=== PATIENT | female | born 1970 | race Two or more races ===

== ENCOUNTER 2021-04-05 01:12 | Inpatient (IN) | payer OTHER ==
[~2021-04-05] VITALS: Ht 165.1 cm; Wt 71.7 kg
[2021-04-05] MEDS ORDERED: CEFEPIME 1 GM in IV D5W 50 ML IV ONE (01:30)
[2021-04-05] MEDS ORDERED: methylPREDNISolone SOD SUCC 125 MG/2ML VIAL IV ONE (01:30)
--- NOTE | 2021-04-05 01:45 | NUR ---
pt bibra c/o sob.pt stated it started 2 days ago and it got worst.pt on 5 l NC sating 95%.pt is a/o x4.
[2021-04-05] MEDS ORDERED: methylPREDNISolone SOD SUCC 125 MG/2ML VIAL ONE (02:06)
[2021-04-05] MEDS ORDERED: CEFEPIME 1 GM VIAL ONE (02:06)
[2021-04-05 02:21] LABS: BASOPHILS % (AUTO) 0.2 % (0.0-2.0); HEMATOCRIT 40 % (33-45); LYMPHOCYTES % (AUTO) 12.3 % (20.0-44.0); MEAN CORPUSCULAR HGB CONC 33 g/dl (31.0-36.0); MEAN CORPUSCULAR VOLUME 81 fL (82-100); MONOCYTES # (AUTO) 0.2 K/uL (0.1-1.30); MONOCYTES % (AUTO) 2.3 % (2.0-12.0); NEUTROPHILS # (AUTO) 7.2 K/uL (1.8-8.9); NEUTROPHILS % (AUTO) 85.2 % (43.0-81.0); PLATELET COUNT (AUTO) 249 K/uL (150-450); RED BLOOD CELL COUNT(AUTO) 4.89 MIL/uL (4.0-5.2); WHITE BLOOD COUNT (AUTO) 8.4 K/uL (4.3-11.0)
[2021-04-05 02:39] LABS: CREATINE KINASE, TOTAL 281 U/L (26-192)
[2021-04-05 02:43] LABS: C-REACTIVE PROTEIN 12.5 mg/dL (0.0-0.9)
[2021-04-05 03:21] LABS: CALCIUM, SERUM 8.5 mg/dL (8.5-10.1); CARBON DIOXIDE 25 mmol/L (21-32); CHLORIDE 104 mmol/L (98-107); CREATININE 1.2 mg/dL (0.6-1.3); D-DIMER 1.62 mg/L(FEU (0.17-0.50); GLUCOSE 113 mg/dL (74-106); POTASSIUM 3.6 mmol/L (3.5-5.1); SODIUM SERUM 140 mmol/L (136-145); UREA NITROGEN, BLOOD 20 mg/dL (7-18)
[2021-04-05 03:38] LABS: ALANINE AMINOTRANSFERASE 98 U/L (12-78); ALBUMIN 3.3 g/dL (3.4-5.0); ALKALINE PHOSPHATASE 102 U/L (46-116); ASPARTATE AMINOTRANSFERASE 230 U/L (15-37); BILIRUBIN,TOTAL 0.5 mg/dL (0.2-1.0); TOTAL PROTEIN, SERUM 8.9 g/dL (6.4-8.2)
--- NOTE | 2021-04-05 04:21 | NUR ---
CALLED [facility] AWAITING FOR DR HARRINGTON'S CALL BACK
--- NOTE | 2021-04-05 04:27 | NUR ---
DR HERNANDEZ ON THE PHONE WITH DR BRAN FROM [facility]
--- NOTE | 2021-04-05 07:32 | NUR ---
PT ASSESSED ON BED ASLEEP EASILY AROUSABLE, NOT IN RESPIRATORY DISTRESS, ON NC AT 4LPM SATS AT 96%, V/S STABLE, KEPT RESTED AND COMFORTABLE. WILL CONTINUE TO MONITOR.
--- NOTE | 2021-04-05 07:48 | NUR ---
CALLED [facility] AND WAS NOTIFIED THAT THEY ARE STILL AWAITING A BED FOR THE PT. WILL RECIEVE A CALL ONCE A BED IS PROVIDED.
--- NOTE | 2021-04-05 09:09 | NUR ---
CALLED [facility] REGARDING PT TRANSFER. DUE TO NO OPEN BED'S [place] GAVE AUTHORIZATION FOR THE PT TO STAY HERE. WILL RECIEVE A CALL BACK WITH AUTHORIZATION NUMBER
--- NOTE | 2021-04-05 10:37 | NUR ---
AUTHORIZATION NUMBER [id number]
--- NOTE | 2021-04-05 11:58 | NUR ---
ROOM 118-2
--- NOTE | 2021-04-05 11:59 | NUR ---
CALLED [facility] FOR REPORT RN NOT AVAILBLE. WILL CALL BACK LATER.
--- NOTE | 2021-04-05 12:42 | NUR ---
REPORT GIVEN TO CANDIDA FRYE FOR DUSTY.
--- NOTE | 2021-04-05 13:15 | NUR ---
RN REPORT RECEIVED PATIENT FROM ER DEPT. PATIENT ADMITTED FOR POSITIVE OF COVID-19. BREATHING EVEN AND UNLABORED ON 4LPM O2 VIA NC, TOLERATED WELL. NO SOB OR ANY ACUTE RESPIRATORY DISTRESS NOTED. PATIENT IS AWAKE, ALERT/ORIENTED X 4, ABLE TO MAKE NEEDS KNOWN. PATIENT BELONGINGS ACCOUNTED FOR AND ADDED ON INVENTORY LIST IN PATIENT'S CHART. VITAL SIGNS: TEMP: 98.7, HR-102, RR-18, O2-93%, BP-115/63. PATIENT DENIES ANY PAIN AT THE TIME. ALL NEEDS ATTENDED. ALL APPLICABLE ISOLATION PRECAUTIONS IN PLACED. ALL SAFETY MEASURES IN PLACED: HOB ELEVATED, BED LOCKED, IN LOWEST POSITION WITH SIDE RAILS UP. CALL LIGHT WITHIN REACH OF PATIENT. WILL CONTINUE TO MONITOR ACCORDINGLY.
[2021-04-05] MEDS ORDERED: Z GUARD REMEDY 4 OZ OINT TP PRN (14:00)
[2021-04-05] MEDS ORDERED: ENOXAPARIN SODIUM 40 MG/0.4 ML DISP.SYRIN SQ SCH (14:00)
[2021-04-05] MEDS ORDERED: IV NS 0.9% 1,000 ML IV ONE (14:00)
[2021-04-05] MEDS ORDERED: MAGNESIUM HYDROXIDE 30 ML UDC PO PRN (14:00)
[2021-04-05] MEDS ORDERED: ONDANSETRON HCL/PF 4 MG/2 ML VIAL IVP PRN (14:00)
[2021-04-05] MEDS ORDERED: MAG HYDROX/AL HYDROX/SIMETH 30 ML UDC PO PRN (14:00)
[2021-04-05 16:06] VITALS: BP 107/59
--- NOTE | 2021-04-05 18:47 | NUR ---
RN CLOSING NOTES PATIENT IN BED AWAKE ALERT/ORIENTED X 4. PATIENT REMAINS IN STABLE CONDITION THROUGHOUT SHIFT. NO SIGNIFICANT CHANGES THROUGHOUT SHIFT. PATIENT ON 4 LPM O2 VIA NC, TOLERATING WELL WITH SAT OF 94% BREATHING EVEN AND UNLABORED. NO DISTRESS OR SHORTNESS OF BREATH NOTED, ON TELE MONITOR SHOWING ST HR AT 100'S. IV ACCESS ON LEFT AC #18G, FLUSHED WELL, INTACT AND PATENT AND RIGHT AC INFUSING NS AT 75 ML/HR, TOLERATING WELL. NO S/SX OF INFILTRATION NOTED. ALL DUE MEDS GIVEN ORDERED, TOLERATED WELL. KEPT PATIENT DRY, CLEAN AND COMFORTABLE. ALL APPLICABLE ISOLATION PRECAUTIONS MAINTAINED. SAFETY MEASURES IN PLACE, BED ALARM ON, BED IN LOW AND LOCKED POSITION, CALL LIGHT WITHIN REACH OF PATIENT. SIDE RAILS UP X2. ALL NEEDS ATTENDED AND MET. WILL ENDORSE TO ONCOMING SHIFT FOR CONTINUITY OF CARE.
--- NOTE | 2021-04-05 19:30 | NUR ---
BUSINESS PLANNING DIRECTOR OPENING NOTES: RECEIVED PATIENT FROM DAY SHIFT, PATIENT IN BED, A/O X4, STATES NO PAIN, L AC #18 PATENT AND INTACT, R. AC #18 NOT PATENT BUT IS INTACT, TELE MONITOR SHOWS SINUS TACHY, ON 4L NASAL CANNULA, SATURATING 94%, NO SIGNS OF SOB, NO DISTRESS NOTED, BED AT LOWEST POSITION, BRAKES LOCKED AND IN PLACE, CALL LIGHT WITHIN REACH, SIDE RAILS UP X2, WILL CONTINUE TO MONITOR AND ADMINISTER NURSING INTERVENTIONS NEEDED.
[2021-04-05 20:00] VITALS: BP 130/63
--- NOTE | 2021-04-05 22:30 | NUR ---
FITTER PLACER NOTES: INCREASED NC TO 5L PER PATIENT COMPLAINT OF SHORTNESS OF BREATH, PATIENT STATED SHE FEELS BETTER AFTER A FEW MINUTES
[2021-04-06] VITALS: BP 124/72
[2021-04-06 04:00] VITALS: BP 121/69
--- NOTE | 2021-04-06 05:55 | NUR ---
VALVE MECHANIC NOTES: PATIENT CLAIMS 11/10 BACK PAIN AND REQUESTS PAIN MEDICATION, WILL ADMINISTER TYLENOL 650MG
[2021-04-06] MEDS: ACETAMINOPHEN 325 MG TABLET PO PRN (05:57)
--- NOTE | 2021-04-06 06:45 | NUR ---
KEYPUNCH OPERATOR CLOSING NOTES: PATIENT IN BED, RESTING, A/O X4, TELE MONITOR SHOWS ST, L. AC #18 INTACT BUT NOT PATENT, R. AC #18 PATENT AND INTACT, NS STOPPED AT 0320, 650 MG TYLENOL GIVEN FOR PAIN IN BACK, ON NC 5L, SATURATING 94%, , NO SIGNS OF SOB, NO DISTRESS NOTED, BED AT LOWEST POSITION, BRAKES LOCKED AND IN POSITION, SIDE RAILS UP X2, CALL LIGHT WITHIN REACH, WILL CONTINUE TO MONITOR AND IMPLEMENT NURSING INTERVENTIONS NEEDED. WILL ENDORSE TO DAY SHIFT NURSE.
--- NOTE | 2021-04-06 07:30 | NUR ---
RN AM TELE OPENING NOTES: RECEIVED PATIENT FROM PM SHIFT, PATIENT IN BED, A/O X4, STATES NO PAIN, L AC #18 PATENT AND INTACT, R. AC #18 NOT PATENT BUT IS INTACT, TELE MONITOR SHOWS SINUS TACHY, ON 4L NASAL CANNULA, SATURATING 94%, NO SIGNS OF SOB, NO DISTRESS NOTED, BED AT LOWEST POSITION, BRAKES LOCKED AND IN PLACE, CALL LIGHT WITHIN REACH, SIDE RAILS UP X2, WILL CONTINUE TO MONITOR AND ADMINISTER NURSING INTERVENTIONS NEEDED
[2021-04-06 08:00] VITALS: BP 130/70
[2021-04-06] MEDS: DEXAMETHASONE SOD PHOSPHATE 10 MG/ML VIAL IV SCH (08:13)
[2021-04-06 08:40] LABS: CALCIUM, SERUM 8.8 mg/dL (8.5-10.1); CREATININE 1.2 mg/dL (0.6-1.3); MAGNESIUM 2.8 mg/dL (1.8-2.4); PHOSPHORUS 3.1 mg/dL (2.5-4.9); POTASSIUM 3.4 mmol/L (3.5-5.1)
[2021-04-06 08:42] LABS: BASOPHILS % (AUTO) 0.1 % (0.0-2.0); HEMATOCRIT 34 % (33-45); LYMPHOCYTES % (AUTO) 9.5 % (20.0-44.0); MEAN CORPUSCULAR HGB CONC 33 g/dl (31.0-36.0); MEAN CORPUSCULAR VOLUME 81 fL (82-100); MONOCYTES # (AUTO) 0.5 K/uL (0.1-1.30); MONOCYTES % (AUTO) 4.8 % (2.0-12.0); NEUTROPHILS # (AUTO) 8.8 K/uL (1.8-8.9); NEUTROPHILS % (AUTO) 85.6 % (43.0-81.0); PLATELET COUNT (AUTO) 311 K/uL (150-450); RED BLOOD CELL COUNT(AUTO) 4.18 MIL/uL (4.0-5.2); WHITE BLOOD COUNT (AUTO) 10.3 K/uL (4.3-11.0)
[2021-04-06] MEDS: ENOXAPARIN SODIUM 40 MG/0.4 ML DISP.SYRIN SQ SCH ×2 (10:00→21:01)
[2021-04-06] MEDS ORDERED: ENOXAPARIN SODIUM 40 MG/0.4 ML DISP.SYRIN SQ SCH ×2 (10:30→11:20)
[2021-04-06] MEDS ORDERED: POTASSIUM CHLORIDE 20 MEQ TAB.PRT.SR PO SCH (11:00)
--- NOTE | 2021-04-06 11:27 | NUR ---
FREEZER TUNNEL OPERATOR NOTES PHARMACY AMENDED LOVENOX ORDER FROM 14:00 TO 11:00AM. PATIENT GIVEN LOVENOX AT 10:30.
[2021-04-06 12:00] VITALS: BP 119/70
[2021-04-06 16:00] VITALS: BP 131/77
[2021-04-06] MEDS: HYDROCODONE/APAP 5/325MG TABLET PO PRN (17:41)
--- NOTE | 2021-04-06 18:42 | NUR ---
DREDGE PIPE INSTALLER CLOSING NOTES: PATIENT IN BED, RESTING, A/O X4, TELE MONITOR SHOWS SR AT 91 BPM, L. AC #18 INTACT AND PATENT, R. AC #18 PATENT AND INTACT, PATIENT ON SIMPLE MASK 8L, SATURATING 93%, , NO SIGNS OF SOB, NO DISTRESS NOTED, BED AT LOWEST POSITION, BRAKES LOCKED AND IN POSITION, SIDE RAILS UP X2, CALL LIGHT WITHIN REACH, WILL CONTINUE TO MONITOR AND IMPLEMENT NURSING INTERVENTIONS NEEDED. WILL ENDORSE TO MOTORBOAT MECHANIC INBOARD/OUTBOARD NURSE.
--- NOTE | 2021-04-06 19:45 | NUR ---
RN NOTE PT RECEIVED IN BED. PT IS ON 5L OF O2 VIA NC SHOWING NO S/S OF RESP DISTRESS. PT IS ALERT AND ORIENTED X3-4. ON DRAW IN HAND SHOWING NSR. SKIN INTACT. ON REGULAR DIET. IV ACCESS NOTED ON LEFT AC#18 AND RIGHT AC#18. LINES FLUSHED AND PATENT, NO SIGNS OF INFILTRATION. ALL SAFETY MEASURES IMPLEMENTED. CALL LIGHT WITHIN REACH. BED ALARM ON. BED LOCKED AND IN LOWEST POSITION. WILL CONTINUE TO MONITOR AND ASSESS FOR ANY CHANGES DURING SHIFT.
[2021-04-06 20:00] VITALS: BP 128/60
[2021-04-07] VITALS: BP 121/69
[2021-04-07] MEDS: HYDROCODONE/APAP 5/325MG TABLET PO PRN (02:07)
[2021-04-07 04:00] VITALS: BP 135/85
--- NOTE | 2021-04-07 06:43 | NUR ---
RN NOTE NO CHANGES IN PT CONDITION DURING SHIFT. PT IS ON 5L OF O2 VIA NC SHOWING NO S/S OF RESP DISTRESS. PT IS ALERT AND ORIENTED X3-4. ON BUSINESS TECHNOLOGY PROFESSOR SHOWING NSR. IV ACCESS NOTED ON LEFT AC#18 AND RIGHT AC#18. LINES FLUSHED AND PATENT, NO SIGNS OF INFILTRATION. ALL DUE MEDS GIVEN ORDERED. ALL SAFETY MEASURES IMPLEMENTED. CALL LIGHT WITHIN REACH. BED ALARM ON. BED LOCKED AND IN LOWEST POSITION. WILL ENDORSE TO MORNING SHIFT RN FOR DUSTY.
--- NOTE | 2021-04-07 07:30 | NUR ---
RN OPENING NOTES: RECEIVED PATIENT AWAKE, ALERT/ORIENTED X4, ABLE TO MAKE NEEDS KNOWN. ON O2 5LPM VIA NC, TOLERATING WELL. BREATHING EVEN AND UNLABORED. NO SOB OR ANY ACUTE DISTRESS NOTED. IV ACCESS ON LEFT AC #18 PATENT AND INTACT, RIGHT AC #18. ALL APPLICABLE ISOLATION PRECAUTIONS IN PLACED. ALL SAFETY MEASURES IN PLACE BED AT LOWEST POSITION AND LOCKED SIDE RAILS UP X2, CALL LIGHT WITHIN REACH OF PATIENT. WILL CONTINUE TO MONITOR PATIENT ACCORDINGLY.
[2021-04-07 08:00] VITALS: BP 157/74
[2021-04-07] MEDS: DEXAMETHASONE SOD PHOSPHATE 10 MG/ML VIAL IV SCH (09:33)
[2021-04-07] MEDS: LEVOTHYROXINE SODIUM 50 MCG TABLET PO SCH (09:33)
[2021-04-07] MEDS: ENOXAPARIN SODIUM 40 MG/0.4 ML DISP.SYRIN SQ SCH ×2 (09:33→21:39)
[2021-04-07 09:37] LABS: BASOPHILS % (AUTO) 0.1 % (0.0-2.0); EOSINOPHILS % (AUTO) 0.1 % (0.0-6.0); HEMATOCRIT 36 % (33-45); HEMOGLOBIN 11.3 g/dL (11.5-14.8); LYMPHOCYTES # (AUTO) 0.9 K/uL (0.8-4.8); LYMPHOCYTES % (AUTO) 6.2 % (20.0-44.0); MEAN CORPUSCULAR HGB CONC 32 g/dl (31.0-36.0); MEAN CORPUSCULAR VOLUME 81 fL (82-100); MONOCYTES # (AUTO) 0.5 K/uL (0.1-1.30); MONOCYTES % (AUTO) 3.6 % (2.0-12.0); NEUTROPHILS # (AUTO) 13.2 K/uL (1.8-8.9); PLATELET COUNT (AUTO) 378 K/uL (150-450); RED BLOOD CELL COUNT(AUTO) 4.37 MIL/uL (4.0-5.2); WHITE BLOOD COUNT (AUTO) 14.6 K/uL (4.3-11.0)
[2021-04-07 09:49] LABS: ALBUMIN 2.9 g/dL (3.4-5.0); BILIRUBIN,DIRECT 0.2 mg/dL (0.0-0.2); BILIRUBIN,TOTAL 0.4 mg/dL (0.2-1.0); CALCIUM, SERUM 8.9 mg/dL (8.5-10.1); CREATININE 0.9 mg/dL (0.6-1.3); PHOSPHORUS 2.4 mg/dL (2.5-4.9); POTASSIUM 3.7 mmol/L (3.5-5.1)
[2021-04-07] MEDS ORDERED: NEUTRA PHOS 1 POWD.PACKET PO ONE (11:30)
[2021-04-07 12:00] VITALS: BP 128/81
[2021-04-07 16:00] VITALS: BP 136/88
[2021-04-07] MEDS: ACETAMINOPHEN 325 MG TABLET PO PRN (17:28)
--- NOTE | 2021-04-07 18:38 | NUR ---
PER [facility] COVID POSITIVE, NOTIFIED ,SIMON DOUGHERTY,PRIMARY RN NOTIFIED.
--- NOTE | 2021-04-07 19:03 | NUR ---
RN CLOSING NOTES PT IN BED AWAKE, RESTING COMFORTABLY IN BED BREATHING EVEN AND UNLABORED NO SOB OR ANY DISTRESS NOTED. ON O2 5L/MIN VIA NC. PATIENT IN STABLE CONDITION THROUGHOUT SHIFT. DENIES ANY PAIN AT THE TIME. IV ACCESS ON RT AC #18G INTACT AND PATENT. NO S/S OF INFILTRATIONS. ALL DUE MEDS GIVEN ORDERED. KEPT PATIENT CLEAN, DRY AND COMFORTABLE. ALL NEEDS MET AND ATTENDED. ALL APPLICABLE ISOLATION PRECAUTIONS IN PLACE. ALL SAFETY MEASURE IN PLACE. BED LOCKED AND IN LOW POSITION WITH SIDERAILS UP. CALL LIGHT WITHIN REACH OF PATIENT WILL ENDORSE TO ONCOMING NURSE FOR CONTINUITY OF CARE.
--- NOTE | 2021-04-07 19:55 | NUR ---
RN OPENING NOTES PT IN BED AWAKE AND A/O X 4 , RESTING COMFORTABLY IN BED BREATHING EVEN AND UNLABORED NO SOB OR ANY DISTRESS NOTED. ON O2 5L/MIN VIA NC SATURATING 93%. DENIES ANY PAIN AT THE TIME. IV ACCESS ON RT AC #18G INTACT AND PATENT. NO S/S OF INFILTRATIONS. ALL APPLICABLE ISOLATION PRECAUTIONS IN PLACE. ALL SAFETY MEASURE IN PLACE. BED LOCKED AND IN LOW POSITION WITH SIDERAILS UP. CALL LIGHT WITHIN REACH OF PATIENT.
[2021-04-07 20:00] VITALS: BP 138/85
--- NOTE | 2021-04-07 21:31 | NUR ---
RN NOTE SON YAIR CALLED FOR UPDATE. HE IS AWARE THAT HER 02 SAT IS IN THE LOW 90S. COMMUNICATED WITH HIM THAT HER STATUS HAS BEEN STABLE DURING MY SHIFT WITH HER FOR THE PAST COUPLE OF HOURS. WILL CALL BACK TOMORROW MORNING FOR MORE UPDATES.
[2021-04-07] MEDS: ZOLPIDEM TARTRATE 5 MG TABLET PO PRN (23:48)
[2021-04-08] VITALS: BP_SYST 121; BP_SYST 143; BP_DIAS 75; BP_DIAS 76
[2021-04-08 04:00] VITALS: BP 122/72
--- NOTE | 2021-04-08 06:44 | NUR ---
RN CLOSING NOTES PT IN BED AWAKE, RESTING COMFORTABLY IN BED BREATHING EVEN AND UNLABORED NO SOB OR ANY DISTRESS NOTED. ON O2 5L/MIN VIA NC. KEPT PATIENT CLEAN, DRY AND COMFORTABLE. ALL NEEDS MET AND ATTENDED. ALL APPLICABLE ISOLATION PRECAUTIONS IN PLACE. ALL SAFETY MEASURE IN PLACE. BED LOCKED AND IN LOW POSITION WITH SIDERAILS UP. CALL LIGHT WITHIN REACH OF PATIENT WILL ENDORSE TO ONCOMING NURSE FOR PATIENTS REQUESTS REGARDING DISCHARGE TO HOME AGAINST MEDICAL ADVICE BECAUSE SHE SAYS SHE "FEELS ANXIOUS ABOUT BEING HERE AND WANTS TO GO HOME OR MAYBE I'LL GO TO [place] OR SOMETHING."
--- NOTE | 2021-04-08 07:35 | NUR ---
RN MORNING NOTE PT RECEIVED IN BED WITH HOB SEMI FOWLERS. PT IS ON 5L O2 VIA NC SAT 100% TOLERATING WELL WITH NO SIGNS OF DISTRESS OR LABORED BREATHING. PT IS A/OX4 AND ON REGULAR DIET. IV ACCESS R AC 18G. BED IS LOCKED IN LOWEST POSITION X2 GUARD RAILS UP, CALL OSULLIVAN IS WITHIN REACH, AND ALL HOSPITAL SAFETY MEASURES ARE IN PLACE. WILL CONTINUE TO MONITOR THIS SHIFT.
[2021-04-08 08:00] VITALS: BP 121/77
[2021-04-08] MEDS: LEVOTHYROXINE SODIUM 50 MCG TABLET PO SCH (08:27)
[2021-04-08] MEDS: DEXAMETHASONE SOD PHOSPHATE 10 MG/ML VIAL IV SCH (08:28)
[2021-04-08] MEDS: ENOXAPARIN SODIUM 40 MG/0.4 ML DISP.SYRIN SQ SCH ×2 (09:40→21:29)
[2021-04-08 12:00] VITALS: BP 133/76
[2021-04-08] MEDS ORDERED: LORAZEPAM INJ 2 MG/ML VIAL IV PRN (14:30)
[2021-04-08 16:00] VITALS: BP 127/70
[2021-04-08 16:13] LABS: HEMATOCRIT 36 % (33-45); HEMOGLOBIN 11.7 g/dL (11.5-14.8); LYMPHOCYTES # (AUTO) 0.5 K/uL (0.8-4.8); LYMPHOCYTES % (AUTO) 3.3 % (20.0-44.0); MEAN CORPUSCULAR HGB CONC 33 g/dl (31.0-36.0); MEAN CORPUSCULAR VOLUME 80 fL (82-100); MONOCYTES # (AUTO) 0.3 K/uL (0.1-1.30); MONOCYTES % (AUTO) 1.7 % (2.0-12.0); NEUTROPHILS # (AUTO) 14.9 K/uL (1.8-8.9); PLATELET COUNT (AUTO) 351 K/uL (150-450); RED BLOOD CELL COUNT(AUTO) 4.45 MIL/uL (4.0-5.2); WHITE BLOOD COUNT (AUTO) 15.7 K/uL (4.3-11.0)
[2021-04-08 16:37] LABS: MAGNESIUM 2.5 mg/dL (1.8-2.4); PHOSPHORUS 2.5 mg/dL (2.5-4.9); POTASSIUM 3.5 mmol/L (3.5-5.1)
[2021-04-08] MEDS: ENSURE ENLIVE 237 ML LIQUID (VANILLA) PO SCH (17:54)
[2021-04-08 18:24] LABS: BAND % (MANUAL) 4 % (0.0-5.0); LYMPHOCYTES % (MANUAL) 8 % (16-48); MONOCYTES % (MANUAL) 2 % (0-11.0); MYELOCYTES % 1 % (0-0); NEUTROPHILS % (MANUAL) 85 (42-76)
--- NOTE | 2021-04-08 19:02 | NUR ---
RN CLOSING NOTE PT IS RESTING IN BED WITH HOB SEMI FOWLERS. PT IS ON 7L O2 VIA SIMPLE MASK SAT 100% TOLERATING WELL WITH NO SIGNS OF DISTRESS OR LABORED BREATHING. PT IS A/OX4 AND ON REGULAR DIET. IV ACCESS R AC 18G. BED IS LOCKED IN LOWEST POSITION X2 GUARD RAILS UP, CALL OSULLIVAN IS WITHIN REACH, AND ALL HOSPITAL SAFETY MEASURES ARE IN PLACE. WILL ENDORSE TO THRESHING OPERATOR NURSE FOR DUSTY.
--- NOTE | 2021-04-08 19:38 | NUR ---
RN OPENING NOTES PATIENT IS A/O X 4 . IN SEMI FOWLERS POSITION. PT IS ON 7L O2 VIA SIMPLE MASK SAT 90S TOLERATING WELL WITH NO SIGNS OF DISTRESS OR LABORED BREATHING. PT IS A/OX4 AND ON REGULAR DIET. IV ACCESS R AC 18G. BED IS LOCKED IN LOWEST POSITION X2 GUARD RAILS UP, CALL OSULLIVAN IS WITHIN REACH, AND COVID 19 ISOLATION PRECAUTIONS TAKEN, AND ENVIRONMENTAL PRECAUTIONS TAKEN. WILL CONTINUE TO MONITOR THROUGHOUT THE SHIFT.
[2021-04-08 20:00] VITALS: BP 137/89
--- NOTE | 2021-04-08 20:30 | NUR ---
GRANITE WORKER NOTE AT @2029PATIENTS SON (YAIR) , CALLED TO GET AN UPDATE, HE STATED THAT HIS MOM SAID THAT NO ONE EVER CAME IN TO DO AM LABS SO TREATMENT CAN BE INITIATED. HOWEVER PATIENT HAD REFUSED AM LABS YESTERDAY. SPOKE WITH PATIENT AT 2039 AND EXPLAINED THE IMPORTANCE OF CONSENTING TO LAB WORK HER TREATMENT PLAN IS DEPENDENT ON THE RESULTS OF LIVER FUNCTION TESTS. PATIENT WAS ON THE PHONE WITH HER SON WHILE I WAS NEXT TO HER AND SHE SAID THAT NO ONE EVER CAME IN THE ROOM TO DO BLOOD WORK IN THE MORNING. I GENTLY REMINDED HER THAT SHE HAD REFUSED THE LABS IN THE AM, AND SHE RECALLED THAT INFORMATION AND SAID THAT SHE DID NOT LIKE TO BE POKED BECAUSE IT HURT. AM LABS ARE SCHEDULED FOR THE AM, PATIENT SAID THAT SHE WILL ALLOW THEM TO GET BLOOD IN THE MORNING. WILL CONTINUE TO MONITOR PATIENT AND ENCOURAGE HER NEEDED FOR LABS.
--- NOTE | 2021-04-08 20:53 | NUR ---
LAND MOBILE RADIO TECHNICIAN NOTE SPOKE WITH ARIC TILLMAN, HE IS AWARE THAT THAT THE NEEDS THE BLOOD WORK IN ORDER TO START THE TREATMENT. HE IS AWARE AND WILL SPEAK WITH HIS SON TO TRY TO CONVINCE HER TO AGREE TO AM LABS SO TREATMENT CAN BE INITIATED. PHONE NUMBER FOR IS [phone]
[2021-04-08] MEDS: ZOLPIDEM TARTRATE 5 MG TABLET PO PRN (21:26)
[2021-04-09 00:33] VITALS: BP 137/89
[2021-04-09 04:00] VITALS: BP 139/78
[2021-04-09 07:16] LABS: BASOPHILS % (AUTO) 0.1 % (0.0-2.0); EOSINOPHILS % (AUTO) 0.4 % (0.0-6.0); HEMATOCRIT 38 % (33-45); LYMPHOCYTES # (AUTO) 0.9 K/uL (0.8-4.8); LYMPHOCYTES % (AUTO) 6.9 % (20.0-44.0); MEAN CORPUSCULAR HGB CONC 32 g/dl (31.0-36.0); MEAN CORPUSCULAR VOLUME 81 fL (82-100); MONOCYTES # (AUTO) 0.4 K/uL (0.1-1.30); MONOCYTES % (AUTO) 2.9 % (2.0-12.0); NEUTROPHILS # (AUTO) 11.1 K/uL (1.8-8.9); NEUTROPHILS % (AUTO) 89.7 % (43.0-81.0); PLATELET COUNT (AUTO) 325 K/uL (150-450); WHITE BLOOD COUNT (AUTO) 12.4 K/uL (4.3-11.0)
--- NOTE | 2021-04-09 07:53 | NUR ---
RN CLOSING NOTE PATIENT REMAINED STABLE THROUGHOUT NIGHT, KEPT PATIENT DRY AND CLEAN THROUGHOUT THE SHIFT. WILL ENDORSE PLAN OF CARE TO ONCOMING NURSE.
[2021-04-09 07:58] LABS: ALBUMIN 2.8 g/dL (3.4-5.0); BILIRUBIN,DIRECT 0.2 mg/dL (0.0-0.2); BILIRUBIN,TOTAL 0.6 mg/dL (0.2-1.0); CALCIUM, SERUM 8.4 mg/dL (8.5-10.1); CREATININE 0.8 mg/dL (0.6-1.3); MAGNESIUM 2.8 mg/dL (1.8-2.4); PHOSPHORUS 2.4 mg/dL (2.5-4.9); POTASSIUM 3.8 mmol/L (3.5-5.1); TOTAL PROTEIN, SERUM 8.1 g/dL (6.4-8.2)
[2021-04-09 08:00] VITALS: BP 129/77
[2021-04-09] MEDS: ENSURE ENLIVE 237 ML LIQUID (VANILLA) PO SCH ×2 (08:00→13:58)
[2021-04-09] MEDS: LEVOTHYROXINE SODIUM 50 MCG TABLET PO SCH (09:04)
[2021-04-09] MEDS: DEXAMETHASONE SOD PHOSPHATE 10 MG/ML VIAL IV SCH (09:04)
[2021-04-09] MEDS: ENOXAPARIN SODIUM 40 MG/0.4 ML DISP.SYRIN SQ SCH ×2 (09:11→21:12)
[2021-04-09 12:00] VITALS: BP 134/59
[2021-04-09] MEDS ORDERED: K PHOS NEUTRAL 250 MG TABLET PO ONE (15:30)
[2021-04-09 16:00] VITALS: BP 132/88
[2021-04-09] MEDS ORDERED: REMDESIVIR (CHARGED) 200 MG, *LOADING DOSE 1 EA in IV NS 0.9% 210 ML IV ONE (17:00)
--- NOTE | 2021-04-09 19:35 | NUR ---
RN OPENING NOTES RECEIVED CARE OF PATIENT WHILE PATIENT IN BED, A/O X4, ABLE TO VERBALIZE NEEDS, NO PAIN OR DISCOMFORT EXPRESSED AT THIS TIME. PATIENT IS ON 15L O2 VIA SIMPLE MASK SAT 98% TOLERATING WELL WITH NO SIGNS OF DISTRESS OR LABORED BREATHING. IV ACCESS R AC G#[address] AND PATENT. NO SIGNIFICANT FINDINGS UPON INITIAL NURSING ASSESSMENTS. ALL SAFETY MEASURES IMPLEMENTED, BED IS LOCKED IN LOWEST POSITION, X2 GUARD RAILS UP, CALL LIGHT IS WITHIN REACH. WILL CONTINUE TO MONITOR PATIENT FOR ANY CHANGES.
[2021-04-09 20:00] VITALS: BP 129/81
--- NOTE | 2021-04-09 20:21 | NUR ---
RN NOTE PT IS RESTING IN BED. PT IS ON 8L O2 VIA SIMPLE MASK SAT 100% TOLERATING WELL WITH NO SIGNS OF DISTRESS OR LABORED BREATHING. PT IS A/OX4 VERBALLY RESPONSIVE. IV ACCESS R AC 18G IN PLACE AND PATENT. BED IS LOCKED IN LOWEST POSITION X2 GUARD RAILS UP, CALL OSULLIVAN IS WITHIN REACH, AND ALL HOSPITAL SAFETY MEASURES ARE IN PLACE. V/S WNL. DUE MEDICATIONS GIVEN.
[2021-04-10] VITALS: BP 137/79
[2021-04-10 04:00] VITALS: BP 129/81
--- NOTE | 2021-04-10 07:32 | NUR ---
RN CLOSING NOTES ENDORSED CARE OF PATIENT WHILE PATIENT IN BED, A/O X4, ABLE TO VERBALIZE NEEDS, NO PAIN OR DISCOMFORT EXPRESSED AT THIS TIME. PATIENT IS ON 15L O2 VIA SIMPLE MASK SAT 98% TOLERATING WELL WITH NO SIGNS OF DISTRESS OR LABORED BREATHING. IV ACCESS R AC G#[address] AND PATENT. NO SIGNIFICANT FINDINGS UPON ALL NURSING ASSESSMENTS. ALL NEEDS ATTENDED TO, ALL DUE MEDS GIVEN. ALL SAFETY MEASURES IMPLEMENTED, BED IS LOCKED IN LOWEST POSITION, X2 GUARD RAILS UP, CALL LIGHT IS WITHIN REACH. ENDORSED TO DAY SHIFT NURSE FOR DUSTY.
--- NOTE | 2021-04-10 07:58 | NUR ---
RN NOTE PT IS RESTING IN BED. PT IS ON 15L O2 VIA SIMPLE MASK SAT 95% TOLERATING WELL WITH NO SIGNS OF DISTRESS OR LABORED BREATHING. PT IS A/OX4 AND VERBALLY RESPONSIVE. IV ACCESS R AC 18G IN PLACE AND PATENT. BED IS LOCKED IN LOWEST POSITION X2 GUARD RAILS UP, CALL OSULLIVAN IS WITHIN REACH, AND ALL HOSPITAL SAFETY MEASURES ARE IN PLACE.
[2021-04-10 08:00] VITALS: BP 120/86
[2021-04-10 08:25] LABS: BASOPHILS % (AUTO) 0.1 % (0.0-2.0); EOSINOPHILS % (AUTO) 2.7 % (0.0-6.0); HEMATOCRIT 36 % (33-45); HEMOGLOBIN 11.8 g/dL (11.5-14.8); LYMPHOCYTES # (AUTO) 1.3 K/uL (0.8-4.8); MEAN CORPUSCULAR HGB CONC 33 g/dl (31.0-36.0); MEAN CORPUSCULAR VOLUME 81 fL (82-100); MONOCYTES # (AUTO) 0.6 K/uL (0.1-1.30); MONOCYTES % (AUTO) 5.5 % (2.0-12.0); NEUTROPHILS # (AUTO) 8.4 K/uL (1.8-8.9); NEUTROPHILS % (AUTO) 79.7 % (43.0-81.0); PLATELET COUNT (AUTO) 380 K/uL (150-450); RED BLOOD CELL COUNT(AUTO) 4.47 MIL/uL (4.0-5.2); WHITE BLOOD COUNT (AUTO) 10.6 K/uL (4.3-11.0)
[2021-04-10 09:05] LABS: ALBUMIN 2.7 g/dL (3.4-5.0); BILIRUBIN,DIRECT 0.2 mg/dL (0.0-0.2); BILIRUBIN,TOTAL 0.4 mg/dL (0.2-1.0); CALCIUM, SERUM 8.3 mg/dL (8.5-10.1); CREATININE 0.7 mg/dL (0.6-1.3); MAGNESIUM 2.2 mg/dL (1.8-2.4); PHOSPHORUS 2.6 mg/dL (2.5-4.9); TOTAL PROTEIN, SERUM 7.4 g/dL (6.4-8.2)
[2021-04-10] MEDS: LEVOTHYROXINE SODIUM 50 MCG TABLET PO SCH (09:41)
[2021-04-10] MEDS: DEXAMETHASONE SOD PHOSPHATE 10 MG/ML VIAL IV SCH (09:41)
[2021-04-10] MEDS: ENOXAPARIN SODIUM 40 MG/0.4 ML DISP.SYRIN SQ SCH ×2 (09:42→21:52)
[2021-04-10] MEDS: ENSURE ENLIVE 237 ML LIQUID (VANILLA) PO SCH ×2 (09:52→12:55)
[2021-04-10 12:00] VITALS: BP 133/79
[2021-04-10] MEDS ORDERED: POTASSIUM CHLORIDE 20 MEQ TAB.PRT.SR PO ONE (15:30)
[2021-04-10 16:00] VITALS: BP 130/62
[2021-04-10] MEDS: REMDESIVIR (CHARGED) 100 MG in IV NS 0.9% 100 ML IV SCH (17:42)
--- NOTE | 2021-04-10 18:54 | NUR ---
RN NOTE PT IS RESTING IN BED. ON 15L O2 VIA SIMPLE MASK SAT 97% TOLERATING WELL WITH NO SIGNS OF DISTRESS OR LABORED BREATHING. PT IS A/OX4 AND VERBALLY RESPONSIVE. IV ACCESS R AC 18G IN PLACE AND PATENT. BED IS LOCKED IN LOWEST POSITION X2 GUARD RAILS UP, CALL OSULLIVAN IS WITHIN REACH, AND ALL HOSPITAL SAFETY MEASURES ARE IN PLACE. DUE MEDICATIONS GIVEN. MORNING CARE DONE.
--- NOTE | 2021-04-10 19:47 | NUR ---
RN OPENING NOTES RECEIVED CARE OF PATIENT WHILE PATIENT IN BED, A/O X4, ABLE TO VERBALIZE NEEDS, NO PAIN OR DISCOMFORT EXPRESSED AT THIS TIME. PATIENT IS ON 15L O2 VIA SIMPLE MASK SAT 94% TOLERATING WELL WITH NO SIGNS OF DISTRESS OR LABORED BREATHING. IV ACCESS R AC G#[address] AND PATENT. NO SIGNIFICANT FINDINGS UPON INITIAL NURSING ASSESSMENTS. ALL SAFETY MEASURES IMPLEMENTED, BED IS LOCKED IN LOWEST POSITION, X2 GUARD RAILS UP, CALL LIGHT IS WITHIN REACH. WILL CONTINUE TO MONITOR PATIENT FOR ANY CHANGES.
[2021-04-10 20:00] VITALS: BP 137/84
[2021-04-10] MEDS: ZOLPIDEM TARTRATE 5 MG TABLET PO PRN ×2 (21:50→21:58)
[2021-04-11] VITALS: BP 133/80
[2021-04-11 04:00] VITALS: BP 130/72
[2021-04-11] MEDS: ALPRAZOLAM 0.25 MG TABLET PO PRN ×2 (04:18→17:07)
--- NOTE | 2021-04-11 07:21 | NUR ---
RN CLOSING NOTES ENDORSED CARE OF PATIENT WHILE PATIENT IN BED, A/O X4, ABLE TO VERBALIZE NEEDS, NO PAIN OR DISCOMFORT EXPRESSED AT THIS TIME. PATIENT IS ON 15L O2 VIA SIMPLE MASK SAT 92% TOLERATING WELL WITH NO SIGNS OF DISTRESS OR LABORED BREATHING. PATIENT ON TELE MONITOR, SINUS TACH WITH HR OF 112 NOTED AT THIS TIME. IV ACCESS R AC G#[address] AND PATENT. NO SIGNIFICANT FINDINGS UPON ALL NURSING ASSESSMENTS. ALL SAFETY MEASURES IMPLEMENTED, BED IS LOCKED IN LOWEST POSITION, X2 GUARD RAILS UP, CALL LIGHT IS WITHIN REACH. ENDORSED CARE OF PATIENT TO DAY SHIFT NURSE FOR DUSTY.
--- NOTE | 2021-04-11 07:29 | NUR ---
RN OPENING NOTES; RECEIVED PT IN BED RESTING. PT A/OX4, PT HAS O2 @15LM VIA SIMPLE MASK. SATING AT 94$. NO C/O PAIN AT THIS TIME. NO SOB OR DISTRESS NOTED.ALL SAFETY MEASURES RENDERED, BED LOCKED IN LOWEST POS. SIDERAILSX2 WITH CALL LIGHT WITHIN REACH. WILL CONTINUE TO MONITOR.
[2021-04-11 08:00] VITALS: BP 104/70
[2021-04-11] MEDS: LEVOTHYROXINE SODIUM 50 MCG TABLET PO SCH (08:08)
[2021-04-11] MEDS: ENSURE ENLIVE 237 ML LIQUID (VANILLA) PO SCH ×2 (08:09→12:22)
[2021-04-11] MEDS: DEXAMETHASONE SOD PHOSPHATE 10 MG/ML VIAL IV SCH (08:09)
[2021-04-11] MEDS: ENOXAPARIN SODIUM 40 MG/0.4 ML DISP.SYRIN SQ SCH ×2 (08:12→21:00)
[2021-04-11 08:23] LABS: BASOPHILS % (AUTO) 0.2 % (0.0-2.0); EOSINOPHILS % (AUTO) 3.3 % (0.0-6.0); HEMATOCRIT 35 % (33-45); HEMOGLOBIN 11.2 g/dL (11.5-14.8); LYMPHOCYTES # (AUTO) 1.4 K/uL (0.8-4.8); LYMPHOCYTES % (AUTO) 11.4 % (20.0-44.0); MEAN CORPUSCULAR HGB CONC 32 g/dl (31.0-36.0); MEAN CORPUSCULAR VOLUME 83 fL (82-100); MONOCYTES # (AUTO) 0.7 K/uL (0.1-1.30); MONOCYTES % (AUTO) 5.4 % (2.0-12.0); NEUTROPHILS # (AUTO) 9.6 K/uL (1.8-8.9); NEUTROPHILS % (AUTO) 79.7 % (43.0-81.0); PLATELET COUNT (AUTO) 452 K/uL (150-450); RED BLOOD CELL COUNT(AUTO) 4.29 MIL/uL (4.0-5.2); WHITE BLOOD COUNT (AUTO) 12.1 K/uL (4.3-11.0)
[2021-04-11 10:33] LABS: ALBUMIN 2.7 g/dL (3.4-5.0); BILIRUBIN,DIRECT 0.1 mg/dL (0.0-0.2); BILIRUBIN,TOTAL 0.3 mg/dL (0.2-1.0); CALCIUM, SERUM 8.3 mg/dL (8.5-10.1); CREATININE 0.8 mg/dL (0.6-1.3); POTASSIUM 3.5 mmol/L (3.5-5.1); TOTAL PROTEIN, SERUM 7.2 g/dL (6.4-8.2)
[2021-04-11 12:00] VITALS: BP 110/74
[2021-04-11] MEDS: LORAZEPAM 1 MG TABLET PO PRN ×2 (13:23→23:54)
[2021-04-11 16:00] VITALS: BP 123/66
[2021-04-11] MEDS: REMDESIVIR (CHARGED) 100 MG in IV NS 0.9% 100 ML IV SCH (17:02)
--- NOTE | 2021-04-11 18:37 | NUR ---
RN CLOSING NOTES; PT A/OX2-3, CAN MAKE NEEDS KNOWN. NO C/O PAIN AT THIS TIME. PT C/O ANXIETY. ATIVAN GIVEN THIS AFTERNOON, AND XANAX GIVEN THIS EVENING. ALL OTHER MEDICATIONS GIVEN AND TOLERATED WELL. BAG #2 OF REMDESIVIR GIVEN AND TOLERATED WELL. ALL SAFETY MEASURES DONE, BED IN LOWEST POS. LOCKED, SIDE RAILSX1 WITH CALL LIGHT WITHIN REACH. WILL ENDORSE TO SUPERVISOR TRUST ACCOUNTS RN. NO SIGNIFICANT CHANGES TO PT HEALTH STATUS DURING SHIFT.
--- NOTE | 2021-04-11 19:25 | NUR ---
RN OPENING NOTES RECEIVED CARE OF PATIENT WHILE PATIENT IN BED, A/O X4, ABLE TO VERBALIZE NEEDS, NO PAIN OR DISCOMFORT EXPRESSED AT THIS TIME. PATIENT IS ON 15L O2 VIA SIMPLE MASK SAT 92% TOLERATING WELL WITH NO SIGNS OF DISTRESS OR LABORED BREATHING AT THIS TIME. NO SIGNIFICANT FINDINGS UPON INITIAL NURSING ASSESSMENTS. ALL DUE ISOLATION PRECAUTIONS IMPLEMENTED. ALL SAFETY MEASURES RENDERED, BED IS LOCKED IN LOWEST POSITION, X2 GUARD RAILS UP, CALL LIGHT IS WITHIN REACH. WILL CONTINUE TO MONITOR PATIENT FOR ANY CHANGES.
[2021-04-11 20:00] VITALS: BP 110/81
[2021-04-11] MEDS: ZOLPIDEM TARTRATE 5 MG TABLET PO PRN (20:55)
[2021-04-12] VITALS: BP 129/68
[2021-04-12 04:00] VITALS: BP 132/72
--- NOTE | 2021-04-12 07:27 | NUR ---
RN CLOSING NOTES ENDORSED CARE OF PATIENT WHILE PATIENT IN BED, A/O X4, ABLE TO VERBALIZE NEEDS, NO PAIN OR DISCOMFORT EXPRESSED AT THIS TIME. PATIENT IS ON 15L O2 VIA SIMPLE MASK SAT 93% TOLERATING WELL WITH NO SIGNS OF DISTRESS OR LABORED BREATHING. PATIENT ON TELE MONITOR, SR NOTED AT THIS TIME, HR OF 87. IV ACCESS R AC G#[address] AND PATENT. NO SIGNIFICANT FINDINGS UPON ALL NURSING ASSESSMENTS. ALL SAFETY MEASURES IMPLEMENTED, BED IS LOCKED IN LOWEST POSITION, X2 GUARD RAILS UP, CALL LIGHT IS WITHIN REACH. ALL APPROPRIATE ISOLATION PRECAUTIONS PUT IN PLACE. ENDORSED CARE OF PATIENT TO DAY SHIFT NURSE FOR DUSTY.
--- NOTE | 2021-04-12 07:29 | NUR ---
RN OPENING NOTES; RECEIVED PT IN BED RESTING. PT A/OX2-3, PT HAS O2 @15LM VIA SIMPLE MASK. SATING AT 96%. PT SEEMS SLIGHTLY CONFUSED. NO C/O PAIN AT THIS TIME. NO SOB OR DISTRESS NOTED. ALL SAFETY MEASURES RENDERED, BED LOCKED IN LOWEST POS. SIDERAILSX2 WITH CALL LIGHT WITHIN REACH. WILL CONTINUE TO MONITOR.
[2021-04-12 08:00] VITALS: BP 135/83
[2021-04-12 08:04] LABS: BASOPHILS % (AUTO) 0.2 % (0.0-2.0); EOSINOPHILS % (AUTO) 0.5 % (0.0-6.0); HEMATOCRIT 35 % (33-45); HEMOGLOBIN 11.3 g/dL (11.5-14.8); LYMPHOCYTES # (AUTO) 1.5 K/uL (0.8-4.8); LYMPHOCYTES % (AUTO) 12.6 % (20.0-44.0); MEAN CORPUSCULAR HGB CONC 32 g/dl (31.0-36.0); MEAN CORPUSCULAR VOLUME 82 fL (82-100); MONOCYTES # (AUTO) 0.6 K/uL (0.1-1.30); MONOCYTES % (AUTO) 5.3 % (2.0-12.0); NEUTROPHILS # (AUTO) 9.4 K/uL (1.8-8.9); NEUTROPHILS % (AUTO) 81.4 % (43.0-81.0); PLATELET COUNT (AUTO) 462 K/uL (150-450); RED BLOOD CELL COUNT(AUTO) 4.26 MIL/uL (4.0-5.2); WHITE BLOOD COUNT (AUTO) 11.6 K/uL (4.3-11.0)
[2021-04-12] MEDS: DEXAMETHASONE SOD PHOSPHATE 10 MG/ML VIAL IV SCH (08:12)
[2021-04-12] MEDS: LEVOTHYROXINE SODIUM 50 MCG TABLET PO SCH (08:12)
[2021-04-12] MEDS: ENOXAPARIN SODIUM 40 MG/0.4 ML DISP.SYRIN SQ SCH ×2 (08:21→20:43)
[2021-04-12] MEDS: ENSURE ENLIVE 237 ML LIQUID (VANILLA) PO SCH ×2 (08:23→12:16)
[2021-04-12 08:44] LABS: ALBUMIN 2.8 g/dL (3.4-5.0); BILIRUBIN,DIRECT 0.1 mg/dL (0.0-0.2); BILIRUBIN,TOTAL 0.4 mg/dL (0.2-1.0); CALCIUM, SERUM 8.2 mg/dL (8.5-10.1); POTASSIUM 2.9 mmol/L (3.5-5.1); TOTAL PROTEIN, SERUM 7.3 g/dL (6.4-8.2)
[2021-04-12] MEDS: ALPRAZOLAM 0.25 MG TABLET PO PRN (09:20)
[2021-04-12 12:00] VITALS: BP 138/81
[2021-04-12] MEDS: Potassium Chloride 10 MEQ, LIDOCAINE HCL/PF 1% 1 ML in IV D5W 50 ML IV SCH ×4 (15:34→19:37)
[2021-04-12 16:00] VITALS: BP 126/78
[2021-04-12 16:20] LABS: ABG BASE EXCESS 3.2 mmol/L; ABG OXYGEN SATURATION 91.7 % (92.0-98.5); ABG PH 7.477 (7.350-7.450); ABG PO2 59.8 mmHg (75.0-100.0); AaDO2 255.1 mmHg; COHb 0.3 % (0.5-1.5); O2Hb 91.4 % (94.0-97.0); SITE, ABG Left Brachial; VENT MODE, BG 10 L SIMPLE MASK
[2021-04-12] MEDS: REMDESIVIR (CHARGED) 100 MG in IV NS 0.9% 100 ML IV SCH (17:35)
--- NOTE | 2021-04-12 19:03 | NUR ---
RN CLOSING NOTES; PT A/OX2, CAN MAKE NEEDS KNOWN. NO C/O PAIN AT THIS TIME. PT C/O ANXIETY. ATIVAN GIVEN THIS AFTERNOON, AND XANAX GIVEN THIS EVENING. 02 VIA SIMPLE MASKED DECREASED TO 5L, PT TOLERATING WELL SATING AT 95%.ALL OTHER MEDICATIONS GIVEN AND TOLERATED WELL. BAG #3 OF REMDESIVIR GIVEN AND TOLERATED WELL. ALL SAFETY MEASURES DONE, BED IN LOWEST POS. LOCKED, SIDE RAILSX3 WITH CALL LIGHT WITHIN REACH. WILL ENDORSE TO LUBE TECHNICIAN RN. NO SIGNIFICANT CHANGES TO PT HEALTH STATUS DURING SHIFT.
[2021-04-12 20:00] VITALS: BP 144/75
[2021-04-13] VITALS: BP 117/68
[2021-04-13 04:00] VITALS: BP 91/62
--- NOTE | 2021-04-13 07:00 | NUR ---
RN CLOSING NOTES, PATIENT IN BED, A/O X4, SLEEPING AT THIS TIME, AROUSES TO VERBAL STIMULI, ON 3L SIMPLE MASK WITH NO SIGNS OF DISTRESS OR LABORED BREATHING, NO SIGNIFICANT CHANGE IN CONDITION DURING THE NIGHT, BED IS LOCKED IN THE LOWEST POSITION, S/R OF BED X2 UP, CALL LIGHT WITHIN REACH, ALL SAFETY PRECAUTIONS IN PLACED, ISOLATION PRECAUTIONS IN PLACE, ENDORSED TO FORREST TIRADO FOR CONTINUATION OF CARE. Addendum: 04/13/21 at 9137 by CATRINA OLIVEIRA RN PATIENT IN SIMPLE MASK AT 5-8L THROUGHOUT THE NIGHT.
[2021-04-13] MEDS: LEVOTHYROXINE SODIUM 50 MCG TABLET PO SCH (07:35)
[2021-04-13] MEDS: ENSURE ENLIVE 237 ML LIQUID (VANILLA) PO SCH ×2 (07:36→12:11)
--- NOTE | 2021-04-13 07:46 | NUR ---
RN OPENING NOTES RECEIVED PT IN BED RESTING. PT A/OX 4, PT HAS O2 @ 5LM VIA SIMPLE MASK. SATING AT 96%. NO C/O PAIN AT THIS TIME. NO SOB OR DISTRESS NOTED. ALL SAFETY MEASURES RENDERED, BED LOCKED IN LOWEST POS. SIDE RAILS UP X2, WITH CALL LIGHT WITHIN REACH. WILL CONTINUE TO MONITOR THROUGHOUT SHIFT.
[2021-04-13 08:00] VITALS: BP 111/56
[2021-04-13 08:36] LABS: BASOPHILS % (AUTO) 0.1 % (0.0-2.0); EOSINOPHILS % (AUTO) 0.4 % (0.0-6.0); HEMATOCRIT 33 % (33-45); LYMPHOCYTES # (AUTO) 1.5 K/uL (0.8-4.8); LYMPHOCYTES % (AUTO) 14.9 % (20.0-44.0); MEAN CORPUSCULAR HGB CONC 33 g/dl (31.0-36.0); MEAN CORPUSCULAR VOLUME 82 fL (82-100); MONOCYTES # (AUTO) 0.7 K/uL (0.1-1.30); MONOCYTES % (AUTO) 6.9 % (2.0-12.0); NEUTROPHILS # (AUTO) 7.7 K/uL (1.8-8.9); NEUTROPHILS % (AUTO) 77.7 % (43.0-81.0); PLATELET COUNT (AUTO) 419 K/uL (150-450); RED BLOOD CELL COUNT(AUTO) 4.05 MIL/uL (4.0-5.2); WHITE BLOOD COUNT (AUTO) 9.9 K/uL (4.3-11.0)
[2021-04-13] MEDS: DEXAMETHASONE SOD PHOSPHATE 10 MG/ML VIAL IV SCH (08:43)
[2021-04-13] MEDS: ENOXAPARIN SODIUM 40 MG/0.4 ML DISP.SYRIN SQ SCH ×2 (08:44→20:06)
[2021-04-13 09:00] LABS: CREATININE 0.9 mg/dL (0.6-1.3); MAGNESIUM 1.8 mg/dL (1.8-2.4); POTASSIUM 3.5 mmol/L (3.5-5.1)
[2021-04-13 10:37] LABS: ALBUMIN 2.7 g/dL (3.4-5.0); BILIRUBIN,DIRECT 0.1 mg/dL (0.0-0.2); BILIRUBIN,TOTAL 0.4 mg/dL (0.2-1.0); TOTAL PROTEIN, SERUM 6.9 g/dL (6.4-8.2)
[2021-04-13 12:00] VITALS: BP 107/64
[2021-04-13 16:00] VITALS: BP 115/79
[2021-04-13] MEDS: REMDESIVIR (CHARGED) 100 MG in IV NS 0.9% 100 ML IV SCH (17:06)
[2021-04-13] MEDS: ALPRAZOLAM 0.25 MG TABLET PO PRN (17:19)
--- NOTE | 2021-04-13 18:31 | NUR ---
RN CLOSING NOTES PATIENT IN BED, A/O X4, PT RESTING AT THIS TIME, AROUSES TO VERBAL STIMULI, ON 5L SIMPLE MASK SATING AT 97% WITH NO SIGNS OF DISTRESS OR LABORED BREATHING, NO SIGNIFICANT CHANGE IN CONDITION DURING THE DAY. ALL SAFETY PRECAUTIONS IN PLACE, BED LOCKED IN LOWEST POSITION, S/R OF BED X2 UP, CALL LIGHT WITHIN REACH, ISOLATION PRECAUTIONS IN PLACE, WILL ENDORSE TO CLUB DIRECTOR NURSE FOR DUSTY.
[2021-04-13 20:00] VITALS: BP 122/71
[2021-04-13] MEDS: ZOLPIDEM TARTRATE 5 MG TABLET PO PRN (23:48)
[2021-04-14 02:53] VITALS: BP 116/69
[2021-04-14 06:00] VITALS: BP 119/70
--- NOTE | 2021-04-14 07:23 | NUR ---
RN NOTES, PATIENT IN BED, SLEEPING AT THIS TIME, AROUSES TO VERBAL STIMULI, ON 3L NC TOLERATED WELL, NO SIGNS OF DISTRESS OR LABORED BREATHING, NO SIGNIFICANT CHANGE IN CONDITION DURING THE NIGHT, ENDORSED TO ELAYNE RN FOR CONTINUATION OF CARE.
[2021-04-14] MEDS: DEXAMETHASONE SOD PHOSPHATE 10 MG/ML VIAL IV SCH (08:04)
[2021-04-14] MEDS: LEVOTHYROXINE SODIUM 50 MCG TABLET PO SCH (08:04)
[2021-04-14] MEDS: ENSURE ENLIVE 237 ML LIQUID (VANILLA) PO SCH ×2 (08:05→13:05)
[2021-04-14] MEDS: ENOXAPARIN SODIUM 40 MG/0.4 ML DISP.SYRIN SQ SCH ×2 (08:06→21:09)
[2021-04-14 08:55] VITALS: BP 116/67
--- NOTE | 2021-04-14 08:56 | NUR ---
received awake,alert,no acute distress.
--- NOTE | 2021-04-14 13:04 | NUR ---
room air sat at reat 86% notified need home oxygen cm notified.
[2021-04-14 13:05] VITALS: BP 126/67
[2021-04-14 17:04] VITALS: BP 135/79
--- NOTE | 2021-04-14 18:14 | NUR ---
CALM NO ACUTE DISTRESS,VS. CM MADE AWARE OF DC PLANNING IN AM.REQUESTING SLEEPING PILL TONITE ,WILL ENDORSE TO NIGHT NURSE.
--- NOTE | 2021-04-14 19:35 | NUR ---
RN OPENING NOTES RECEIVED PATIENT IN BED SITTING POSITION. AWAKE, ALERT, ORIENTED X4 AND VERBALLY RESPONSIVE. NO SOB, NO CHEST CONGESTION, BREATHING EVEN AND UNLABORED. ON O2 3LPM VIA N/C AND PT TOLERATED WELL. NO C/O PAIN OR DISCOMFORT. NO ACUTE DISTRESS. ALL SAFETY MEASURES IN PLACE. BED IN LOW POSITION AND LOCKED. SIDE RAILS UP X2, PLACE CALL LIGHT WITHIN REACH. WILL CONTINUE TO MONITOR.
[2021-04-14 20:00] VITALS: BP 133/57
[2021-04-14] MEDS: ZOLPIDEM TARTRATE 5 MG TABLET PO PRN (21:05)
--- NOTE | 2021-04-14 21:05 | NUR ---
RN NOTES: PT C/O UNABLE TO SLEEP. AMBIEN 5 MG TAB GIVEN PER PRN ORDER. WILL CONTINUE TO MONITOR
[2021-04-15] VITALS: BP 111/68
[2021-04-15 04:00] VITALS: BP 106/62
--- NOTE | 2021-04-15 06:44 | NUR ---
RN CLOSING NOTES: PATIENT IN BED SITTING POSITION. AWAKE, ALERT, ORIENTED X4 AND VERBALLY RESPONSIVE. NO SOB NOTED. BREATHING EVEN AND UNLABORED. ON O2 3LPM VIA N/C, O2 SAT 96%. AND PT TOLERATED WELL. NO C/O PAIN OR DISCOMFORT. NO ACUTE DISTRESS. ALL DUE MEDICATIONS GIVEN ORDERED. NO SIGNIFICANT CHANGES DURING THIS SHIFT. ALL SAFETY MEASURES IN PLACE. BED IN LOW POSITION AND LOCKED. SIDE RAILS UP X2, PLACE CALL LIGHT WITHIN REACH. WILL ENDORSE TO MORNING SHIFT NURSE.
[2021-04-15] MEDS: LEVOTHYROXINE SODIUM 50 MCG TABLET PO SCH (07:52)
[2021-04-15] MEDS: ENSURE ENLIVE 237 ML LIQUID (VANILLA) PO SCH ×2 (07:53→13:45)
[2021-04-15 08:00] VITALS: BP 122/62
[2021-04-15] MEDS ORDERED: METH4TAB3 PO (08:22)
[2021-04-15] MEDS ORDERED: ALBU18HF2 INH (08:22)
[2021-04-15] MEDS ORDERED: FLUT1BLS IH (08:22)
[2021-04-15] MEDS: DEXAMETHASONE SOD PHOSPHATE 10 MG/ML VIAL IV SCH (09:42)
[2021-04-15] MEDS: ENOXAPARIN SODIUM 40 MG/0.4 ML DISP.SYRIN SQ SCH ×2 (09:42→20:32)
--- NOTE | 2021-04-15 10:15 | NUR ---
RN NOTE KEPT PT ON ROOM AIR FOR 30 MIN, REASSESS O2 SAT AFTER 30MIN, O2SAT WAS %87.
[2021-04-15 12:00] VITALS: BP 108/68
[2021-04-15 16:00] VITALS: BP 116/48
[2021-04-15] MEDS: LORAZEPAM 1 MG TABLET PO PRN (16:18)
--- NOTE | 2021-04-15 16:23 | NUR ---
RN NOTE PT A/O X 4, COMPLAIN OF ANXIETY, AND RESTLESS, ATIVAN GIVEN, WILL CONTINUE TO ASSESS AND MONITOR
[2021-04-15 20:00] VITALS: BP 112/81
[2021-04-16] VITALS: BP 112/52
[2021-04-16 04:00] VITALS: BP 97/54
[2021-04-16] MEDS: LEVOTHYROXINE SODIUM 50 MCG TABLET PO SCH (06:31)
--- NOTE | 2021-04-16 06:57 | NUR ---
RN CLOSING NOTES PT AWAKE IN BED, WATCHING TV. SHE DENIES ANY PAIN OR DISTRESS AT THIS TIME. PT ANXIOUS TO BE DISCHARGED, EXPLAINED DC PLAN TODAY AND AWAITING HOME O2 ARRANGED BY SENIOR DRUPAL DEVELOPER. PT STABLE DURING THE SHIFT. ALL NEEDS ATTENDED TO. SAFETY MEASURES IN PLACE.
[2021-04-16 08:00] VITALS: BP 101/59
[2021-04-16] MEDS: ENSURE ENLIVE 237 ML LIQUID (VANILLA) PO SCH ×2 (08:00→12:53)
[2021-04-16] MEDS: ENOXAPARIN SODIUM 40 MG/0.4 ML DISP.SYRIN SQ SCH (09:01)
[2021-04-16 12:00] VITALS: BP 110/60
--- NOTE | 2021-04-16 17:08 | NUR ---
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 PT LEFT WITH O2 TANK AT 4L. PT SON BROUGHT PORTABLE O2 TANK AND VERBALIZED HOW TO USE TANK. PT W/O SOB AND ABLE TO AMBULATE. MIDLINE REMOVED AND EDUCATED ON NEW HOME PRESCRIPTIONS. PT WILL F/U WITH HOME PROVIDER
== END 2021-04-16 17:07 | disposition home or self-care (01) | DRG 177 ==
LOC: ER 01:14 → TELE1 13:19
PROVIDERS: ADMIT Family Medicine; ATTEND Internal Medicine
PROC: XW033E5 Introduction of Remdesivir Anti-infective into Peripheral Vein, Percutaneous Approach, New Technology Group 5 (ICD-10-PCS; principal; 2021-04-09)
DX: U07.1 COVID-19 (principal); J12.82 Pneumonia due to coronavirus disease 2019; J96.01 Acute respiratory failure with hypoxia; G92.8 Other toxic encephalopathy; N17.0 Acute kidney failure with tubular necrosis; E44.0 Moderate protein-calorie malnutrition; D68.69 Other thrombophilia; E87.6 Hypokalemia; E88.09 Other disorders of plasma-protein metabolism, not elsewhere classified; Z68.26 Body mass index [BMI] 26.0-26.9, adult; E66.9 Obesity, unspecified; R74.01 Elevation of levels of liver transaminase levels
CPT/HCPCS: 36415; 36600; 71045-TC; 80048-TC; 80053-TC; 80061-TC; 80076-TC; 82550-TC; 82553; 82728-TC; 82803-TC; 83605-TC; 83615-TC; 83735-TC; 83880; 84100-TC; 84484-TC; 85025-TC; 85378-TC; 85610-TC; 85730-TC; 86140-TC; 87040-TC; 87081-TC; 94799-TC; A4216; G0378; J0692; J1100; J1650; J2930; J3480; J3490; J7030; J7050; J7060; U0003